=== PATIENT | male | born 1960 | race Caucasian/White ===

== ENCOUNTER 2023-05-26 09:51 | Outpatient (CLI) | payer OTHER, SELFPAY ==
--- NOTE | 2023-05-26 10:12 | XR_ITS ---
WS: [id number] Left shoulder, 2 views, 05/26/2023 Clinical Data: L SHOULDER PAIN Comparison: None. Findings: No fractures or dislocations are seen. The AC joint is normal. The adjacent left clavicle, left scapu la and ribs are normal. The soft tissues are unremarkable. XR/XR shoulder LT min 2V* [id number] Impression: Negative left shoulder.
--- NOTE | 2023-05-26 10:12 | XR_ITS ---
WS: [id number] Cervical spine, 3 views, 05/26/2023 Clinical Data: NECK PAIN Comparison: None. Findings: No compression fractures are seen. There is minimal disc space narrowing at C5-C6. There is no prevertebral soft tissue swelling. The odontoid is unremarkable. The soft tissues of the neck and the lung apices are normal. XR/XR cervical spine 3V* [id number] Impression: Minimal degenerative disc narrowing at C5-C6.
== END 2023-05-26 09:52 | disposition home or self-care (01) ==
PROVIDERS: Family Provider Family Medicine; Visit Provider Dermatology
DX: Z02.71 Encounter for disability determination (principal); M54.2 Cervicalgia; M25.512 Pain in left shoulder
CPT/HCPCS: 72040; 73030